=== PATIENT | female | born 1980 | race Caucasian/White ===

== ENCOUNTER 2025-02-19 17:17 | Emergency (ER) | payer SELFPAY ==
--- NOTE | ~2025-02-19 | CT_ITS ---
EXAMINATION: CT abdomen pelvis wo con DATE: 02/19/2025 19:55 INDICATION: Worsening urinary tract infection TECHNIQUE: Computed tomography (CT) of the abdomen and pelvis was performed without intravenous contrast. Automated exposure control and iterative reconstruction technique were employed. The dose-length product was 306.35 mGy-cm. COMPARISON: None FINDINGS: Lung bases are clear. Heart size is normal. No pericardial or pleural effusion. Postoperative change of prior sleeve gastrectomy. Liver, gallbladder, spleen, pancreas and bilateral adrenal glands are normal. Kidneys and ureters are normal with no urolithiasis, hydroureteronephrosis or perinephric/ureteral stranding. Bladder is normal. T-shaped IUD in expected position in the anteverted uterus. The appendix is not visualized. No pericecal inflammatory change to suggest acute appendicitis. No free intraperitoneal gas or fluid. No pathologically enlarged abdominal or pelvic lymphadenopathy. Mild thoracolumbar dextrocurvature with mild thoracic and lumbar spondylosis. Mild bilateral hip sacroiliac oste oarthritis. IMPRESSION: 1. No urolithiasis or acute intra-abdominal/pelvic process. 2. IUD in expected position in the anteverted uterus. Reviewed, dictated and finalized at location A.
[2025-02-19 17:18] VITALS: BP 109/62; PULSE 100; RESP 17; TEMP 36.3; O2SAT 100
--- OUTSIDE RECORDS SUMMARY | 2025-02-19 18:42 | XMS_ITS | Clinical Summary ---
Author Organization [facility] Address [address] [place] [address] Care Team Providers Care Cat Dog Or Other Pet Groomer Name Role Phone Unknown, Provider Unavailable Unavailable Rach Hdz MD Primary Care Provider Source Comments [facility],non-owned Affiliates and Associated Physician Practices is amultiple site organization consisting of ambulatory clinics and hospital sitesin [place], [place], [place] and [place]. This disclosure is being madepursuant to the Care Everywhere program and may not contain all information available regarding this patient. Last updated 18.[facility] Allergies No known active allergies Medications * Be aware that medications may not be up to date on this document. Alwaysverify current medications with the patient. escitalopram (LEXAPRO) 20 MG tablet Take 20 mg by mouth once daily Active NYSTOP 613682 UNIT/GM powder 1 Active nystatin (MYCOSTATIN) 792173 UNIT/GM cream Apply to affected area 2 times daily 1 Active ALBUTEROL IN Active SYMBICORT 160-4.5 MCG/ACT inhaler 1 Active levonorgestrel (MIRENA, 52 MG,) 20 MCG/24HR IUD Mirena 20 mcg/24 hours (7 yrs) 52 mg intrauterine device Take by intrauterine route. Active Other Active cyclobenzaprine (FLEXERIL) 10 MG tablet Take 10 mg by mouth nightly as needed for Muscle Spasms Active acetaminophen (TYLENOL) 500 MG tabletIndicatio ns:Bariatric surgery status Pt is to take 2 tabs po every 6 hours for basal pain 24 tablet 2 Active Additional Information Patient not taking.Reported on 07/05/2023 clonazePAM (KLONOPIN) 0.5 MG tablet Take 0.5 mg by mouth 2 times daily as needed 2 Active vitamin D, ergocalciferol, (Drisdol) 1.25 MG (41027 UT) capsuleIndicati ons:Vitamin D Deficiency Take 1 (one) capsule by mouth every 7 days Reasons: Vitamin D Deficiency 4 capsule 3 4 Active Active Problems Problem Noted Date Diagnosed Date Morbid obesity 09/28/2021 Family History Medical History Relation Name Comments Arthritis - Rheumatoid Brother Arthritis - Osteo Father Arthritis - Rheumatoid Father High Blood Pressure Father High Cholesterol Father Diabetes; unknown type Maternal Grandfather Cancer Maternal Grandmother Arthritis - Rheumatoid Mother Cancer Mother Diabetes; unknown type Mother Migraine Mother Migraine Sister Relation Name Status Comments Brother Father Maternal Grandfather Maternal Grandmother Mother Sister Social History Tobacco Use Types Packs/Day Years Used Date Smoking Tobacco: Every Day Cigarettes Smokeless Tobacco: Never Tobacco Cessation:Ready to Q uit: Not Asked; Counseling Given: Not Answered Alcohol Use Standard Drinks/Week Comments Not Currently 0 (1 standard drink = 0.6 oz pur e alcohol) Comments No Sex and Gender Information Value Date Recorded Sex Assigned at Female 07/13/2021 11:31 AM SLEEPING ROOM CLEANER Legal Sex Female 9:56 AM SLEEPING ROOM CLEANER Gender Identity Female 07/13/2021 11:31 AM SLEEPING ROOM CLEANER Sexual Orientation Straight 07/13/2021 11 :31 AM SLEEPING ROOM CLEANER Last Filed Vital Signs Vital Sign Reading Time Taken Comments Blood Pressure 130/78 07/05/2023 2:55 PM SLEEPING ROOM CLEANER Pulse 63 07/05/2023 2:55 PM SLEEPING ROOM CLEANER Temperature 36.8 C (98.2 F) 07/05/2023 2:55 PM SLEEPING ROOM CLEANER Respiratory Rate 16 07/05/2023 2:55 PM SLEEPING ROOM CLEANER Oxygen Saturation 98% 07/05/2023 2:55 PM SLEEPING ROOM CLEANER Inhaled Oxygen Concentration 21% 09/29/2021 8 :29 PM CDT Weight 109.5 kg (241 lb 6.4 oz) 08/04/2023 7:00 AM SLEEPING ROOM CLEANER Height 163.8 cm (5' 4.49) 08/04/2023 7:00 AM CS T Body Mass Index 40.81 08/04/2023 7:00 AM SLEEPING ROOM CLEANER Plan of Treatment Health Maintenance Due Date Last Done Comments COLOGUARD (AGES 45-75) - COLON CA SCREENING 1979 COLON MONITORING 1979 COLONOSCOPY - COLON CA SCREENING 1979 CT COLONOGRAPHY - COLON CA SCREENING 1979 Colorectal Cancer Screening 1979 FIT - COLON CA SCREENING 1979 FLEX SIG - COLON CA SCREENING 1979 MAMMOGRAM 1979 HIV SCREENING 09/20/1994 HEPATITIS C SCREENING 09/16/1997 DTAP/TDAP/TD VACCINES (1 - Tdap) 09/20/1998 HEPATITIS B VACCINE (1 of 3 - 19+ 3-dose series) 09/20/1998 PNEUMOCOCCAL VACCINE (1 of 2 - PCV) 09/20/1998 PAP SMEAR 09/20/2000 HPV VACCINE (1 - 3-dose SCDM series) 09/20/2006 COVID-19 VACCINE (1 - season) 2024 DEPRESSION SCREENING 06/26/2024 INFLUENZA VACCINE (#1) 2025 SCREENING FOR DIABETES 07/05/2026 , 09/30/2021, 09/30/2021, Additional history exists LIPID TESTING 07/05/2028 07/05/2023, 03/29/2021 ZOSTER VACCINE (1 of 2) 09/20/2029 HIB VACCINE Aged Out No longer eligi ble based on patient's age to complete this topic MENINGOCOCCAL (Group B) VACCINE SHARED DECISION-MAKING Aged Out No longer eligible based on patient's age to complete this topic MENINGOCOCCAL GROUPS A/C/Y/W VACCINE Aged Out No longer eligible based on patient's age to complete this topic Medical Devices Implanted Type Area Manager [employer] Retail Device Identifier Shelf Expiration Date Model / Serial / Lot Kit Tissue Clsr Duo Tssl 1 Prefl Syr - [id number] Implanted:Qty : 1 on 09/28/2021 by Rufina Celaya MD at [facility] N/A: [employer] 03/25/2023 [id number] / [id number] Procedures Procedure Name Priority Date/Time Associated Diagnosis Comments COMPREHENSIVE METABOLIC PANEL Routine 07/05/2023 4:00 PM SLEEPING ROOM CLEANER Morbid obesity with body mass index (BMI) of 40.0 to 44.9 in adult Low phosphate levels Intestinal malabsorption, unspecified type LIPID PROFILE Routine 07/05/2023 4:00 PM [facility] Morbid obesity with body mass index (BMI) of 40.0 to 44.9 in adult Low phosphate levels Intestinal malabsorption, unspecified type from Last 3 Months or Most Recently Relevant to Health Maintenance Results * (ABNORMAL) COMPREHENSIVE METABOLIC PANEL (07/05/2023 4:00 PM [facility]) [facility] Glucose 93 70 - 125 mg/dL 07/05/2023 4:[address] [facility] Sodium 144 136 - 145 mmol/L 07/05/2023 4:[address] [facility] Potassium 3.7 3.4 - 5.1 mmol/L 07/05/2023 4:[address] [facility] Chloride 109(H) 98 - 107 mmol/L 07/05/2023 4:[address] [facility] CO2 24 22 - 29 mmol/L 07/05/2023 4:[address] [facility] Calcium 9.32 8.4 - 10.2 mg/dL 07/05/2023 4:[address] [facility] Anion Gap 11 6 - 16 mmol/L 07/05/2023 4:[address] [facility] BUN 8.3(L) 9.8 - 20.1 mg/dL 07/05/2023 4:[address] [facility] Creatinine 0.73 0.57 - 1.11 mg/dL 07/05/2023 4:[address] [facility] Alkaline Phosphatase 106 40 - 150 U/L 07/05/2023 4:[address] [facility] ALT 15 <=55 U/L 07/05/2023 4:[address] [facility] AST 10 5 - 34 U/L 07/05/2023 4:[address] [facility] Protein Total 7.4 6.4 - 8.3 gm/dL 07/05/2023 4:[address] [facility] Albumin 4.1 3.4 - 4.8 gm/dL 07/05/2023 4:[address] [facility] Globulin Total 3.3 2.6 - 4.0 gm/dL 07/05/2023 4:[address] [facility] Albumin/Globulin Ratio 1.2 0.9 - 1.6 07/05/2023 4:[address] [facility] Bilirubin Total 0.4 0.2 - 1.2 mg/dL 07/05/2023 4:[address] [facility] eGFR >90 >90 mL/min/1.7 3m2 07/05/2023 4:[address] [facility] Comment:The GFR result was c alculated using the updated CKD-EPI Creatinine Equation (2020). Blood BLOOD SPECIMEN / Unknown Lab Venipuncture / Unknown 07/05/2023 4:00 PM SLEEPING ROOM CLEANER 07/05/2023 4:24 PM [facility] Edelmira Salmeron APRN-PROFESSIONAL FEE CODER LAB - CHEMISTRY O RDERABLES Final Result Performing Organization Address City/State/[facility] Co de Phone Number [facility] [address] * (ABNORMAL) LIPID PROFILE (07/05/2023 4:00 PM [facility]) Cholesterol 174 <200 mg/dL 07/05/2023 4:[address] [facility] Triglycerides 260(H) <150 mg/dL 07/05/2023 4:[address] [facility] HDL Cholesterol 37(L) >40 mg/dL 4:[address] [facility] Chol HDL Ratio 4.7 1.0 - 6.0 07/05/2023 4:[address] [facility] LDL Calculated 85 65 - 130 mg/dL 07/05/2023 4:[address] [facility] VLDL Calculated 52(H) <=30 mg/dL 4:[address] [facility] Blood BLOOD SPECIMEN / Unknown Lab Venipuncture / Unknown 07/05/2023 4:00 PM SLEEPING ROOM CLEANER 07/05/2023 4:24 PM [facility] Narrative [facility] - 07/05/2023 4:48 PM [facility] Lipid Profile Comment: CHOLESTEROL LEVEL..................CLINICAL INTERPRETATION LESS THAN 200 MG/DL..............................DESIRABLE 200-239 MG/DL..............................BORDERLINE HIGH GREATER THAN 240 MG/DL................................HIGH LDL-CHOLESTEROL LEVEL..............CLINICAL INTERPRETATION LESS THAN 100 MG/DL................................OPTIMAL 100-129 MG/DL.................................NEAR OPTIMAL GREATER THAN 160 MG/DL...........................HIGH RISK HDL RISK LEVEL GREATER THEN 60 MG/DL............................DECREASED 40-60 MG/DL........................................AVERAGE LESS THAN 40 MG/DL...............................INCREASED TRIGLYCERIDE LEVEL..................CLINICAL INTERPRETATION LESS THAN 150 MG/DL...............................DESIRABLE 150-199 MG/DL...............................BORDERLINE HIGH 200-499 MG/DL..........................................HIGH GREATER THAN 500..................................VERY HIGH THE NATIONAL CHOLESTEROL EDUCATION PROGRAM HAS SET THE ABOVE GUIDELINES (REFERANCE VALUES) FOR CHOLESTEROL AND HDL. RISK ASSOCIATED WITH CHOLESTEROL/HDL RATIOS RISK....................MALE RATIO.............FEMALE RATIO 1/2 AVERAGE.................<3.4.......................<3.3 LOW RISK.................... 4.0 ...................... 3.8 AVERAGE..................... 5.0 ...................... 4.5 2X AVERAGE.................. 9.5 ...................... 7.0 3X AVERAGE...................>23........................>11 us Edelmira Salmeron BARGAIN TABLE CLERK-PROFESSIONAL FEE CODER LAB - CHEMISTRY O RDERABLES Final Result [facility] [address] [place] [address], [facility] from Last 3 Months or Most Recently Relevant to Health Maintenance Advance Directives * Full Code (Latest Code Status on File) Date Activated Date Inactivated Comments 09/28/2021 3:37 PM 09/30/2021 2:42 PM Care Teams Cat Dog Or Other Pet Groomer Relationship Specialty Start Date End Date Rach Hdz MD [address] [place] [address] PCP - General Gastroenterology 07/05/23 Unknown, Provider 02/24/21
--- NOTE | 2025-02-19 19:13 | ED_ITS ---
HPI - Female Genitourinary General Chief complaint: Urogenital-Female Stated complaint: UTI SYMPTOMS Time Seen by Provider: 02/19/25 18:15 History of Present Illness HPI Narrative: Patient is a 44-year-old female who presents to the ER with concerns for a UTI and dehydration. She is not clear about when her symptoms started. Patient reports her symptoms started with dehydration and urinary symptoms. She reports her urinary symptoms include retention and voiding a small amount. Over the past couple days patient endorses vomiting, syncopal episode due to pain, and migraine headaches. She reports she last had her menstrual period a couple of days ago. Patient reports she feels as though her abdomen is twisting. She denies any other medical history relevant to this ER visit other than bariatric surgery. Patient also wonders if she has a hernia. She denies any saddle anesthesia or loss of continence. Pt endorses daily marijuana use. Related Data Allergies Allergy/AdvReac Type Severity Reaction Status Date / Time No Known Allergies Allergy Verified 02/19/25 17:19 Review of Systems 2 Review of Systems: All systems reviewed & are unremarkable except as noted in HPI and below Exam 2 Narrative: GENERAL: Ill- appearing, well-nourished, non-toxic, in mild distress d/t pain. HEAD: Normocephalic, atraumatic. NECK: Supple. No adenopathy, no masses. RESPIRATORY: Airway patent, respirations nonlabored. Clear to auscultation bilaterally, no rales, rhonchi, wheezing. CARDIOVASCULAR: Regular rate and rhythm without murmurs, rubs, or gallops. Peripheral pulses 2+ and equal bilaterally. +CVA tenderness ABDOMINAL: Soft, generalized tenderness, nondistended, no hepatosplenomegaly. Normoactive BS. MUSCULOSKELETAL: Moves all extremities. Strength/ROM intact without gross deformities. SKIN: Warm, dry, normal color. No rashes. NEURO: A&O X3. Speech clear. Cranial nerves II-XII intact. No ataxic movements. PSYCHIATRIC: Appropriate mood and affect. Normal interaction. Course Vital Signs Vital signs: Vital Signs Temperature 36.3 C L 02/19/25 17:18 Pulse Rate 100 02/19/25 17:18 Respiratory Rate 17 02/19/25 17:18 Blood Pressure 109/62 02/19/25 17:18 Pulse Oximetry 100 02/19/25 17:18 Oxygen Delivery Room Air 02/19/25 17:18 Temperature 36.3 C L 02/19/25 17:18 Pulse Rate 100 02/19/25 17:18 Respiratory Rate 17 02/19/25 17:18 Blood Pressure 109/62 02/19/25 17:18 Pulse Oximetry 100 02/19/25 17:18 Oxygen Delivery Room Air 02/19/25 17:18 MDM - Female Genitourinary MDM Narrative Medical decision making narrative: Patient is a 44-year-old female who presents to the ER with concerns for a UTI and dehydration. She is not clear about when her symptoms started. Patient reports her symptoms started with dehydration and urinary symptoms. She reports her urinary symptoms include retention and voiding a small amount. Over the past couple days patient endorses vomiting, syncopal episode due to pain, and migraine headaches. She reports she last had her menstrual period a couple of days ago. Patient reports she feels as though her abdomen is twisting. She denies any other medical history relevant to this ER visit other than bariatric surgery. Patient also wonders if she has a hernia. She denies any saddle anesthesia, one-sided numbness/tingling or loss of continence. Labs Ordered: CBC, CMP, UA, UDS Imaging Ordered: CT abdomen pelvis Medications Ordered: Toradol 15 mg IV, morphine 4 mg IV, Zofran 4 mg IV, 1 L normal saline IV bolus, prednisone 40 mg p.o. Results: Patient's CBC was unremarkable. Her CMP was also unremarkable. Patient's urinalysis indicates 1+ leukocytes but 0 wbcs. Her UDS is positive for meth and cannabinoids. Diagnosis: Sciatica, illicit drug abuse, hx degenerative disc disorder Consults: neurosurgery outpatient Patient Education/Shared MDM: Results of lab work and imaging shared with patient. She endorses mild improvement of symptoms following medication administration. Upon time of reexamination, patient reports she has a ?bump in her neck and she scared to get it checked out but she wonders if this is contributing to her symptoms. Patient offered a CT scan but she declined. Patient strongly advised to refrain from further drug use. She was advised to maintain hydration status upon discharge. Patient should follow-up with her PCP and Neurosurgery as soon as possible. They will be discharged home with a prescription for Prednisone, capsaicin lotion, Reglan, and lidocaine patches. Strict return precautions provided. Patient verbalized understanding and is in agreement with plan. Vital signs stable at time of discharge. All questions answered. Differential Diagnosis Differential diagnosis: Likely urinary tract infection and other (Drug abuse, sciatica) Lab Data Attestation: I reviewed the patient's lab results. 02/19/25 19:33 02/19/25 19:33 Labs: Lab Results 02/19/25 02/19/25 Range/Units 19:33 19:40 WBC 6.9 (4.5-10.0) K/mm3 RBC 4.45 (4.2-5.4) M/mm3 Hgb 13.8 (12.0-15.0) g/dL Hct 41.4 (37.0-47.0) % MCV 93.0 (80-100) fl MCH 31.0 (26-34) pg MCHC 33.3 (32-36) g/dl RDW 13.1 (11.5-14.5) % Plt Count 283 (150-375) k/mm3 MPV 9.9 (7.4-10.4) fl Immature Gran % (Auto) 0.3 (0-0.5) % Neut % (Auto) 59.6 (45.5-73.1) % Lymph % (Auto) 31.0 (18.3-44.2) % [place] % (Auto) 5.6 (2.6-8.5) % Eos % (Auto) 2.9 (0-4.4) % Baso % (Auto) 0.6 (0.2-1.2) % Lymph # (Auto) 2.14 (0.9-3.2) K/mm3 [place] # (Auto) 0.4 (0.1-0.6) K/mm3 Eos # (Auto) 0.2 (0-0.3) K/mm3 Baso # (Auto) 0.0 (0.0-0.1) K/mm3 Abs Immat Gran (auto) 0.02 (0.00-0.031) K/mm3 Absolute Neuts (auto) 4.1 (1.3-6.7) K/mm3 Absolute Nucleated RBC 0.000 (0.0-0.012) K/mm3 Nucleated RBC % 0.0 (0.0-0.2) % Sodium 138 (137-145) mmol/L Potassium 4.3 (3.4-5.0) mmol/L Chloride 107 (98-107) mmol/L Carbon Dioxide 26 (22-30) mmol/L Anion Gap 5 (4-12) mmol/L BUN 10 (7-17) mg/dL Creatinine 0.79 (0.7-1.0) mg/dL Estim Creat Clear Calc 81 ml/min Estimated GFR > 60 (59 - ) Glucose 91 (65-110) mg/dL Calcium 9.6 (8.4-10.2) mg/dL Total Bilirubin 0.8 (0.2-1.3) mg/dL AST 15 (14-36) U/L ALT 11 (6-35) U/L Alkaline Phosphatase 89 (38-126) U/L Total Protein 7.4 (6.3-8.2) g/dL Albumin 4.2 (3.5-5.1) g/dL Urine Color Yellow (Yellow) Urine Appearance Turbid H (Clear) Urine pH 8.0 (5.0-9.0) Ur Specific [place] 1.010 (1.001-1.035) Urine Protein Negative (Negative) mg/dL Urine Glucose (UA) Negative (Negative) mg/dL Urine Ketones Negative (Negative) mg/dL Ur Blood (Man) Negative (Negative) Urine Nitrate Negative (Negative) Urine Bilirubin Negative (Negative) Urine Urobilinogen 1.0 (<2.0) mg/dL Add Ur Microanalysis Reviewed Leukocyte Esterase Rfl 1+ H (Negative) GEORGE/UL Urine RBC 0-2 (0-2) /hpf Urine WBC 0-5 (0-3) /hpf Ur Squamous Epith Cells Moderate (Few) /hpf Urine Bacteria 1+ H /hpf Urine Casts 0-2 POC Urine HCG, Qual Negative (Negative) Urine Opiates Screen Negative (Negative) Urine Methadone Screen Negative (Negative) Ur Barbiturates Screen Negative (Negative) Ur Phencyclidine Scrn Negative (Negative) Ur Amphetamine Screen Positive A (Negative) U Benzodiazepines Scrn Negative (Negative) Urine Cocaine Screen Negative (Negative) U Cannabinoids Screen Positive A (Negative) Imaging Data Attestation: I personally reviewed and interpreted this imaging study as follows: Discharge Plan Discharge Clinical Impression: Cannabinoid hyperemesis syndrome, Sciatica, Hx of degenerative disc disease, Illicit drug use, Drug-induced nausea and vomiting Patient Disposition: Home Condition: Stable Instructions: Antibiotic Form, Sciatica (ED), Cannabis Use Disorder (ED), Degenerative Disc Disease (ED) Additional Instructions: Please return to the ER with any worsening symptoms. Follow-up with primary care provider and Neurosurgery as soon as possible. Take all medications as prescribed, including regularly scheduled medications. If your symptoms return please take Reglan. You can also take a hot shower and rub capsaicin lotion on your abdomen. Please take steroids to help control your back pain and use lidocaine patches. Patient Language: Micronesian Prescriptions: New prednisone 20 mg tablet 20 mg PO BID Qty: 10 0RF lidocaine 5 % adhesive patch,medicated 2 patch topical DAILY Qty: 30 0RF Rx Instructions: leave on most painful area for up to 12 hrs capsaicin 0.1 % cream 1 applic topical TID Qty: 56.6 0RF Rx Instructions: do not wash area for at least 30 min after application metoclopramide HCl [Reglan] 10 mg tablet 10 mg PO Q6H PRN (Reason: nausea and vomiting) Qty: 30 0RF Follow-up/Referrals: Patty Wolff MD [Physician, Neurosurgery] Referral Note: neurosurgery PHYSICIAN NOT ON STAFF,NONSTAFF [Primary Care Provider] Kimberlee Mott DO [Physician, Family Practice] Referral Note: primary care provider Stand Alone Forms: Work/School Release IP Time of Disposition: 23:32
[2025-02-19] MEDS: MORPHINE SULFATE (*CRX) 4 MG/ML INJ IV PUSH (19:31)
[2025-02-19] MEDS: ONDANSETRON INJ 4 MG/2 ML VIAL IV PUSH (19:31)
[2025-02-19] MEDS: SODIUM CHLORIDE 0.9% IV 1,000 ML 999 ML IV CONT (19:31)
[2025-02-19 19:42] LABS: BEDSIDEPREGUCG Negative (Negative)
[2025-02-19 19:46] LABS: Hematocrit 41.4 % (37.0-47.0); Hemoglobin 13.8 g/dL (12.0-15.0); Immature Granulocyte Percent A 0.3 % (0-0.5); Lymphocytes Absolute Auto 2.14 K/mm3 (0.9-3.2); Mean Corpuscular HGB Conc 33.3 g/dl (32-36); Mean Corpuscular Hemoglobin 31.0 pg (26-34); Mean Corpuscular Volume 93.0 fl (80-100); Nucleated Red Blood Cells Absolute Auto 0.000 K/mm3 (0.0-0.012); Nucleated Red Blood Cells Perc 0.0 % (0.0-0.2); Platelet Count Result 283 k/mm3 (150-375); Red Blood Count 4.45 M/mm3 (4.2-5.4); White Blood Count 6.9 K/mm3 (4.5-10.0)
[2025-02-19 19:57] LABS: Alanine Aminotransferase 11 U/L (6-35); Albumin Level 4.2 g/dL (3.5-5.1); Alkaline Phosphatase 89 U/L (38-126); Anion Gap 5 mmol/L (4-12); Aspartate Amino Transferase 15 U/L (14-36); Bilirubin,Total 0.8 mg/dL (0.2-1.3); Blood Urea Nitrogen 10 mg/dL (7-17); Calcium 9.6 mg/dL (8.4-10.2); Carbon Dioxide 26 mmol/L (22-30); Chloride 107 mmol/L (98-107); Estimated CRCL calculation 81 ml/min; Estimated Glomerular Filt Rate > 60; Glucose 91 mg/dL (65-110); Potassium 4.3 mmol/L (3.4-5.0); Sodium 138 mmol/L (137-145); Total Protein 7.4 g/dL (6.3-8.2)
[2025-02-19 20:08] LABS: Add Urine Microscopic? YES; Appearance Urine Turbid (Clear); Glucose Urine UA Negative (Negative); Leukocyte Esterase Ur 1+ LEU/UL (Negative); Need Manual Microscopic Reviewed; Nitrate Urine Negative (Negative); Non Pathogenic Casts 0-2; Specific Grav Ur 1.010 (1.001-1.035)
[2025-02-19 20:37] LABS: Cannabinoid Screen Urine Positive (Negative)
[2025-02-19] MEDS: KETOROLAC 15 MG/ML VIAL (*BKC) IV PUSH (22:57)
--- NOTE | 2025-02-19 23:07 | PC.NURSE ---
Pt. states she would like to be d/c. CLEM Cheng notified.
[2025-02-19 23:57] VITALS: BP 127/69; PULSE 76; RESP 18; TEMP 36.9; O2SAT 99
== END 2025-02-19 23:58 | disposition home or self-care (01) ==
PROVIDERS: Emergency Medicine; Emergency Provider Registered Nurse
DX: R11.2 Nausea with vomiting, unspecified (principal); F12.90 Cannabis use, unspecified, uncomplicated; M54.30 Sciatica, unspecified side; M51.369 Other intervertebral disc degeneration, lumbar region without mention of lumbar back pain or lower extremity pain
CPT/HCPCS: 36415; 74176; 80053; 80307; 81001; 81025; 85025; 96361; 96374; 96375; 99284; J1885; J2270; J2405; J7030; J7512